=== PATIENT | female | born 1960 | race Caucasian/White ===

== ENCOUNTER 2016-08-20 22:04 | Emergency (ER) | payer BC, OTHER ==
[2016-08-20 22:13] VITALS: BP 146/98; PULSE 61; TEMP 97.8; BMI 37.8
[2016-08-20] MEDS ORDERED: AMOX TR/POT CLAV 500MG/125MG TABLETS (FP) PO ONE (22:17)
--- NOTE | 2016-08-20 22:17 | PDOC ---
History of Present Illness - General Chief Complaint: Burn Stated Complaint: BURN ON ABDOMEN Time Seen by Provider: 08/20/16 22:06 History Source: Patient Exam Limitations: No Limitations - History of Present Illness Initial Comments: 08/20/16 22:11 This is a 56-year-old female who comes in complaining of a burn to her anterior abdominal area. Patient injured herself 3 days ago when she spilled some hot tea on the area. Patient is concerned because she says it is not more painful than it was yesterday and she is concerned that it may be infected. Patient has been putting bacitracin on it and a dressing. PAST MEDICAL HISTORY: no significant history PAST SURGICAL HISTORY: no significant history FAMILY HISTORY: no pertinant history SOCIAL HISTORY: Pt lives with family and is employed. MEDICATIONS: reviewed ALLERGIES: As per nursing notes Review of Systems General: No fevers or chills, no weakness, no weight loss HEENT: No change in vision. No sore throat,. No ear pain CardioVascular: No chest pain or shortness of breath Respiratory:No cough, or wheezing. Gastrointestinal: no nausea, vomitting, diarrhea or constipation, No rectal bleeding Genitourinary: No dysuria, hematuria, or frequency Musculoskeletal: No joint or muscle pain or swelling Neurologic: No headache, vertigo, dizziness or loss of consciousness Psychiatric: nor depression Skin: No rashes or easy bruising, burn to anterior abdominal wall as per history of present illness Endocrine: no increased thirst or abnormal weight change Allergic: no skin or latex allergy All other systems reviewed and normal GENERAL: The patient is awake, alert, and fully oriented, in no acute distress. HEAD: Normal with no signs of trauma. EYES: Pupils equal, round and reactive to light, extraocular movements intact, sclera anicteric, conjunctiva clear. EXTREMITIES: Normal range of motion, no edema. ABDOMINAL WALL: There is a burn that covers approximatelly 2-3% of the anterior abdominal wall. Of that area approximately 30% of it is second-degree which gives a total burn surface area less than 1%. There is no. Months however there is some surrounding erythema that is unclear as to whether or not this is first-degree burn or some new erythema secondary to a early cellulitis of the second-degree burn. There is slight increase in warmth as well. NEUROLOGICAL: Normal speech, normal gait. PSYCH: Normal mood, normal affect. SKIN: Warm, Dry, normal turgor, no rashes or lesions noted. Assessment and plan: This is a 56-year-old female with less than 1% total body surface area of second-degree burn. Burn was treated with bacitracin and patient was started on Augmentin for possible early cellulitis/infection. Patient discharged home will follow-up with her primary care doctor as needed. Past History - Past Medical History Allergies/Adverse Reactions: Allergies Allergy/AdvReac Type Severity Reaction Status Date / Time aspirin AdvReac Intermediate gi upst Verified 08/20/16 22:06 Sulfa (Sulfonamide AdvReac Intermediate Vomiting Verified 08/20/16 22:06 Antibiotics) ibuprofen AdvReac gi upset Verified 08/20/16 22:06 Home Medications: Ambulatory Orders NK [No Known Home Medication] 10/02/14 Anemia: No Asthma: No Cancer: No Cardiac Disorders: No CVA: No COPD: No CHF: No Dementia: No Diabetes: No GI Disorders: No Disorders: Yes (hx kidney stones) HTN: No Hypercholesterolemia: No Liver Disease: No Seizures: No Thyroid Disease: No - Surgical History Abdominal Surgery: Yes ("twisted intestines" 1993) Cholecystectomy: Yes - Immunization History Immunization Up to Date: Yes - Psycho/Social/Smoking Cessation Hx Anxiety: No Suicidal Ideation: No Smoking History: Never smoked Number of Cigarettes Smoked Daily: 0 Hx Alcohol Use: No Drug/Substance Use Hx: No Substance Use Type: None Hx Substance Use Treatment: No *DC/Admit/Observation/Transfer Diagnosis at time of Disposition: Burn of abdominal wall Qualifiers: Encounter type: initial encounter Burn degree: second degree Qualified Code(s) : T21.22XA - Burn of second degree of abdominal wall, initial encounter - Discharge Dispostion Disposition: HOME Condition at time of disposition: Stable Admit: No - Patient Instructions Printed Discharge Instructions: DI for [place] Additional Instructions: Apply bacitracin or an antibiotic ointment to the open areas once a day for the next 3-4 days. Cover the area with a sterile dressing to prevent it from rubbing against your clothing. Take Augmentin one tablet twice a day for the next 7 days to treat any early infection. Return to the emergency department immediately with ANY new, persistent or worsening symptoms. Continue any medications as previously prescribed by your physician. You should follow up with your primary doctor as soon as possible regarding today's emergency department visit. . Please make sure your doctor reviews the results of your emergency evaluation. Thank you for coming to the Emergency Department today for your care. It was a pleasure to see you today. Please note that your evaluation is INCOMPLETE until you follow-up with your doctor.
== END 2016-08-20 22:24 | disposition home or self-care (01) ==
LOC: FER 22:04
DX: T21.22XA Burn of second degree of abdominal wall, initial encounter (principal); X12.XXXA Contact with other hot fluids, initial encounter; Y93.89 Activity, other specified; Y92.9 Unspecified place or not applicable; Z87.442 Personal history of urinary calculi
CPT/HCPCS: 99281-25